=== PATIENT | female | born 1955 | race Caucasian/White ===

== ENCOUNTER 2019-02-12 13:52 | Day surgery (SDC) | payer OTHER, MEDICAID ==
[2019-02-12] MEDS ORDERED: LACTATED RINGER'S 1,000 ML IV (15:00)
[2019-02-12] MEDS ORDERED: MIDAZOLAM 1 MG/ML 2 ML INJ (16:32)
[2019-02-12] MEDS ORDERED: FENTAnyl 50 MCG/ML VIAL (16:33)
[2019-02-12] MEDS ORDERED: CEFAZOLIN 1 GM INJ (17:12)
[2019-02-12] MEDS: BUPIVACAINE 0.5% 30 ML VIAL INJ (17:22)
[2019-02-12] MEDS ORDERED: DIPHENHYDRAMINE 50 MG INJ IV (17:30)
[2019-02-12] MEDS ORDERED: FENTAnyl 50 MCG/ML VIAL IV ×3 (17:30)
[2019-02-12] MEDS ORDERED: hydrALAzine 20 MG INJ IV (17:30)
[2019-02-12] MEDS ORDERED: KETOROLAC 30 MG INJ IV (17:30)
[2019-02-12] MEDS ORDERED: EPHEDrine 25 MG/5 ML SYG IV (17:30)
[2019-02-12] MEDS ORDERED: ONDANSETRON 4 MG INJ IV (17:30)
[2019-02-12] MEDS ORDERED: OXYCODONE/ACETAMINOPHEN (5/325) TAB PO ×2 (17:30)
[2019-02-12] MEDS ORDERED: ALBUTEROL 0.083% (NEB) 2.5 MG/3 ML AMP HHN (17:30)
[2019-02-12] MEDS ORDERED: LABETALOL HCL 20MG INJ IV (17:30)
[2019-02-12] MEDS ORDERED: MEPERIDINE 25 MG INJ IV (17:30)
== END 2019-02-12 18:55 | disposition home or self-care (01) ==
LOC: SDS 13:52
DX: B38.9 Coccidioidomycosis, unspecified (principal); E03.9 Hypothyroidism, unspecified; E78.5 Hyperlipidemia, unspecified; M06.9 Rheumatoid arthritis, unspecified
CPT/HCPCS: 26160; 88307; 88312